=== PATIENT | male | born 1945 | race Caucasian/White ===

== ENCOUNTER → 2024-10-02 | Outpatient (CLI) | payer MEDICARE, MEDICAID | LOC: M RAD 08:35 | PROVIDERS: ATTEND Neurological Surgery | DX: I67.1 Cerebral aneurysm, nonruptured (principal) ==

== ENCOUNTER → 2025-11-11 | Outpatient (CLI) | payer MEDICARE, MEDICAID | LOC: M PLARAD 15:01 | PROVIDERS: ATTEND Nurse Practitioner Family | DX: I67.1 Cerebral aneurysm, nonruptured (principal) ==